=== PATIENT | female | born 1985 | race Caucasian/White ===

== ENCOUNTER → 2016-08-06 | Outpatient (CLI) | payer BC ==
[~2016-08-06] MED LIST: CHOL2000 PO; IBUP-1451 PO; LEVO75TA PO; OMEG10007 PO; PRENTAB26 PO
[2016-08-06 13:13] LABS: HEMATOCRIT 32.3 % (37-47)
[2016-08-06 13:54] LABS: GTGD 50 Grams
[2016-08-06 14:00] LABS: URINE APPEARANCE CLEAR (CLEAR); URINE BILIRUBIN NEG (NEG); URINE COLOR YELLOW; URINE NITRITE NEG (NEG); URINE SPECIFIC GRAVITY 1.002 (1.000-1.030); UROBILINOGEN NEG (NEG)
[2016-08-06 14:05] LABS: MANUAL MICROSCOPIC REQUIRED? NO; REVIEW REQ? NO
== END | disposition home or self-care (01) ==
LOC: C.LAB1850 12:07
PROVIDERS: ATTEND Obstetrics & Gynecology
DX: O99.283 Endocrine, nutritional and metabolic diseases complicating pregnancy, third trimester (principal)

== ENCOUNTER → 2016-10-01 | Outpatient (CLI) | payer BC | END | disposition home or self-care (01) | LOC: C.LABSPEC 13:24 | PROVIDERS: ATTEND Obstetrics & Gynecology | DX: Z34.83 Encounter for supervision of other normal pregnancy, third trimester (principal) ==

== ENCOUNTER 2016-10-08 17:12 | Outpatient (CLI) | payer BC ==
[~2016-10-08] VITALS: Ht 167.6 cm; Wt 72.7 kg
[~2016-10-08 17:12] MED LIST changes: -CHOL2000 PO; -IBUP-1451 PO
[2016-10-08 17:30] VITALS: Ht 167.6 cm; Wt 72.7 kg
[2016-10-08] MEDS ORDERED: CHOL2000 PO (19:22)
== END 2016-10-08 18:33 | disposition home or self-care (01) ==
LOC: C.OPB 17:12 → C.LD 17:12 → C.OPB 18:33
PROVIDERS: ATTEND Obstetrics & Gynecology
DX: O99.89 Other specified diseases and conditions complicating pregnancy, childbirth and the puerperium (principal); R03.0 Elevated blood-pressure reading, without diagnosis of hypertension; Z3A.38 38 weeks gestation of pregnancy

== ENCOUNTER 2016-10-21 03:43 | Inpatient (IN) | payer BC ==
[~2016-10-21] VITALS: Ht 167.6 cm; Wt 73.0 kg
[~2016-10-21 03:43] MED LIST changes: +CHOL2000 PO; -LEVO75TA PO
--- NOTE | 2016-10-23 09:27 | Medical Student: [facility] ---
Medical Student Delivery Note PRE-DELIVERY DIAGNOSIS: -30 year old , 40 weeks 2 days GA POST-DELIVERY DIAGNOSIS: same PROCEDURE: Spontaneous vaginal delivery and repair of 1st degree perineal laceration ESTIMATED BLOOD LOSS: 300 mL FINDING: viable male, Apgars 9/9, weight pending DESCRIPTION OF DELIVERY: Patient was administered epidural and pitocin and progressed to complete labor. She began to push and spontaneously vaginally delivered a viable male . The was delivered in the left occiput anterior position. After the head was delivered no nuchal cord was noted. The cord was clamped and cut. Next, the anterior shoulder was delivered followed by the posterior shoulder. Then the body was delivered. The baby was dried and subsequently placed on mother's abdomen. A spontaneous cry was heard. The placenta was then delivered spontaneously. It was intact and 2 umbilical arteries and 1 umbilical vein was observed. Oxytocin was given to the patient. Upon palpation the uterus was firm. A manual curettage was performed to check for retained clots or debris in the vagina and uterus. Next, the perineum, vagina and cervix were inspected for any tears. A 1st degree perineal laceration was observed. This laceration was repaired with 3-0 Vicryl. Mother and baby tolerated the procedure well and hemostasis was achieved. Lastly, sponges, instruments and needles were counted and correct at the end of the delivery.
[2016-10-23] MEDS ORDERED: DIPHTHERIA/TETANUS/PERTUSSIS 0.5 ML SYR/VIAL IM. ONE ×2 (09:30)
[2016-10-23] MEDS ORDERED: HYDROCORTISONE ACETATE 25 MG SUPP PR PRN ×2 (09:30)
[2016-10-23] MEDS ORDERED: BENZOCAINE 20% AER SPR 82.5 GM CAN EXT PRN ×2 (09:30)
[2016-10-23] MEDS ORDERED: ACETAMINOPHEN/CODEINE 300/30MG TAB PO PRN ×2 (09:30)
[2016-10-23] MEDS ORDERED: SUPERCREAM 0.870 % 15GM JAR EXT PRN ×2 (09:30)
[2016-10-23] MEDS ORDERED: OXYTOCIN INJ 10 UNITS/ML VIAL IM ONE ×2 (09:30)
[2016-10-23] MEDS ORDERED: LANOLIN OINT EXT PRN ×4 (09:30)
[2016-10-23] MEDS ORDERED: ACETAMINOPHEN 325 MG TAB PO PRN ×2 (09:30)
[2016-10-23] MEDS ORDERED: IBUPROFEN 600 MG TAB PO PRN (09:30)
--- NOTE | 2016-10-23 09:51 | DELIVERY SUMMARY ---
DATE OF OPERATION: 10/23/2016 DATE OF DELIVERY: 10/23/2016. COURSE OF CARE: Chica is a 30-year-old G2, P1-0-0-1 who presented to labor and delivery and was initially evaluated by my partner Dr. Tafoya and found to be with advanced dilation and painful contracts. Attempt was made to provide an epidural however prior to this occurring the patient began to complain of an urge to push. At that time I arrived in the room, Dr. Tafoya who was post call was then dismissed to go home and I assumed care of the patient. I quickly gowned and gloved and over the next pushing effort delivered the head of the followed by both shoulders with no difficulty and the remainder of the infant followed as well. The infant was placed on the maternal abdomen, the cord was allowed to cease pulsing and was then doubly clamped and cut by the father of the baby. Cord blood was collected and then per the patient's wishes the placenta was left in situ until it naturally delivered. Meanwhile the vagina and perineum were examined and a first degree perineal laceration was found. This was infiltrated with 1% plain lidocaine with the patient's permission and then closed using a 3-0 Vicryl in a running locked manner. The placenta then spontaneously delivered and was noted to be intact with a 3-vessel cord. The patient and her partner asked to bring this home and do not wish for it to be sent for evaluation. At the present time mother and infant are both in stable condition having tolerated delivery well. Subsequent review of records reveals that this 30-year-old female had a complicated by maternal hypothyroidism which was followed with monthly labs and did not require medical treatment. Her blood type is 0 positive. She is rubella immune and group B strep negative. ALLERGIES: She has no known allergies. MEDICATIONS: Her medications include hemorrhoid cream, vitamins. PAST MEDICAL HISTORY: Her medical history is notable for hypothyroid and depression as well as PCOS, none of which currently require medical treatment. PAST SURGICAL HISTORY: Notable for wisdom tooth extraction. OBSTETRIC HISTORY: Includes a prior vaginal delivery in 2012. ASSESSMENT: Currently the patient is immediately status post a spontaneous vaginal delivery and repair of first degree laceration and will be admitted for the usual care. I attest to the content of the Intraoperative Record and any orders documented therein. Any exceptio ns are noted below.
[2016-10-23 09:55] VITALS: Ht 167.6 cm; Wt 73.0 kg
[2016-10-23] MEDS: IBUPROFEN 600 MG TAB PO PRN ×2 (10:07→19:41)
[2016-10-23 13:50] VITALS: BP 126/82; PULSE 89; TEMP 36.8
[2016-10-23 16:00] VITALS: BP 131/88; PULSE 58; TEMP 36.9
[2016-10-23 19:30] VITALS: BP 107/68; PULSE 81; TEMP 36.5
[2016-10-23] MEDS: DOCUSATE SODIUM 100 MG CAP PO SCH (19:41)
[2016-10-23] MEDS ORDERED: DOCUSATE SODIUM 100 MG CAP PO SCH (20:00)
[2016-10-23 23:15] VITALS: BP 130/88; PULSE 62; TEMP 36.7
[2016-10-24 05:20] VITALS: BP 130/88; PULSE 62; TEMP 36.5
--- NOTE | 2016-10-24 06:34 | Progress Note ---
Subjective Oct 24, 2016. Subjective conversation w/ patient, physical exam, chart review Ambulation: ambulating normally Voiding: no voiding problems Passing Gas: Yes Diet Tolerance: Regular Diet Lochia: Moderate Feeding Type: Breast Feeding Review of Systems Constitutional: No chills, No fever Respiratory: No cough Cardiac: No chest pain Breast: No problem reported Abdomen: No nausea, No vomiting Female : No problem reported Objective Vital Signs Date Time Temp Pulse Resp B/P Pulse Ox O2 Delivery O2 Flow Rate FiO2 10/24/16 05:20 36.5 62 16 130/88 Room Air 10/23/16 23:15 36.7 62 18 130/88 Room Air 10/23/16 23:15 Room Air 10/23/16 19:30 36.5 81 20 107/68 Room Air 10/23/16 16:00 Room Air 10/23/16 16:00 36.9 58 16 131/88 Room Air 10/23/16 13:50 Room Air 10/23/16 13:50 36.8 89 20 126/82 Room Air Physical Exam General Appearance: WELL-APPEARING, NO APPARENT DISTRESS Respiratory/Chest: no respiratory distress, no accessory muscle use Cardiovascular: no edema Abdomen: non tender, soft Fundus: Firm Extremities: no pedal edema, no calf tenderness Laboratory Results Last 24 Hours Test 10/24/16 04:44 Assessment and Plan Post- Day#: 1 Continue Routine Care: PPD#1 unmedicated with 1' lac. Recovering normally, wishes to stay until PPD2.
[2016-10-24 07:02] LABS: HEMATOCRIT 29.2 % (37-47)
[2016-10-24] MEDS ORDERED: PRENATAL VITAMIN TAB PO SCH (08:00)
[2016-10-24] MEDS: PRENATAL VITAMIN TAB PO SCH (08:24)
[2016-10-24] MEDS: DOCUSATE SODIUM 100 MG CAP PO SCH ×2 (08:25→19:58)
[2016-10-24 08:30] VITALS: BP 127/92; PULSE 89; TEMP 36.7; O2SAT 99
[2016-10-24] MEDS: IBUPROFEN 600 MG TAB PO PRN ×2 (11:38→19:59)
[2016-10-24 15:30] VITALS: BP 130/78; PULSE 66; TEMP 36.8
[2016-10-25 00:45] VITALS: BP 124/83; PULSE 66; TEMP 36.7; O2SAT 97; O2SAT 98
--- NOTE | 2016-10-25 08:03 | Progress Note ---
Subjective Oct 25, 2016. Subjective conversation w/ patient, physical exam Ambulation: ambulating normally Voiding: no voiding problems Passing Gas: Yes Diet Tolerance: Regular Diet Lochia: Moderate Feeding Type: Breast Feeding Pain: controlled Review of Systems Constitutional: No problem reported Respiratory: No problem reported Cardiac: No problem reported Breast: No problem reported Abdomen: No problem reported Female : No problem reported Objective Vital Signs Date Time Temp Pulse Resp B/P Pulse Ox O2 Delivery O2 Flow Rate FiO2 10/25/16 00:45 97 Room Air 10/25/16 00:45 36.7 66 20 124/83 98 Room Air 10/24/16 15:30 Room Air 10/24/16 15:30 36.8 66 20 130/78 Room Air 10/24/16 08:30 36.7 89 16 127/92 99 Room Air 10/24/16 08:30 99 Room Air Physical Exam General Appearance: WELL-APPEARING, NO APPARENT DISTRESS Respiratory/Chest: no respiratory distress Cardiovascular: regular rate, rhythm Abdomen: non tender, soft Fundus: Firm Extremities: normal inspection Assessment and Plan Post- Day#: 2 Continue Routine Care: PPD#2 Doing well. Discharge to home today, teaching done.
--- NOTE | 2016-10-25 08:05 | Discharge Instructions ---
Discharge Instructions Date of Service Oct 25, 2016. Admission Reason for Admission: LABOR Discharge Discharge Diagnosis / Problem: Discharge Goals Goal(s): Routine recovery after delivery Activity Recommendations Activity Limitations: per Instructions/Follow-up section . Instructions / Follow-Up Instructions / Follow-Up ACTIVITY RECOMMENDATIONS: * Gradual return to full activity over the next 2-3 weeks. * No lifting - nothing heavier than baby over the next 2-3 weeks. * Do not engage in vigorous exercise, sexual activity or sports until cleared by your physician. * Do not drive or operate any motorized equipment until cleared by your physician. * You may shower/bathe daily. MEDICATIONS: For discomfort or pain, you may use Acetaminophen (Tylenol), Ibuprofen (Advil), or Naproxen (Aleve) following the package directions. For constipation you may use Colace following the package directions. BREAST CARE: If you are not breast feeding: * Wear a supportive bra 24 hours a day for one to two weeks. * Avoid stimulating your breasts and nipples as much as possible during the first few weeks after delivery. * When taking a shower, have the warm water hit your back, not breasts. * When your breasts feel full, apply ice packs. Usually three to four times a day helps ease the discomfort. * Take a mild pain medication (Tylenol / Motrin) when you are uncomfortable. If breast feeding: * Use breast milk to lubricate nipples. Lansinoh cream may be used for sore nipples. You do not need to remove cream prior to breast feeding. If using a different brand of cream, check the label for directions regarding removal of cream prior to nursing. * Wear a supportive bra. * If having problems with breasts or breast feeding, call a economics consultant or your health care provider. EPISIOTOMY CARE: After delivery, if you have an episiotomy (stitches), the following steps will ease discomfort and aid healing. * For the first 24 hours after delivery, place ice packs next to your episiotomy to help reduce swelling. * After the first 24 hour-period, sitz baths, either portable or in the tub, are suggested. A shower with a shower arm sprayed over the episiotomy may be comforting. * Eli care should be done after each voiding and bowel movement. Squirt warm water from a plastic bottle over the perineum (region of the body between the anus and urinary opening) and pat dry. * Use Dermoplast to ease discomfort. Shake container. [place] directly over the episiotomy. Place a Tucks on a clean sanitary pad next to your episiotomy. SPECIAL CARE INSTRUCTIONS: When you are discharged from the hospital, it is important for you to follow the instructions listed below: * During the first week at home, you should be able to care for yourself and your baby. In addition, the usual light household activities are encouraged. * Limit your activities to the way you feel. Do not try to clean the house or move furniture. Be sensible. * If you actively engage in sports and have done so up until the time of your delivery, you may resume these activities as soon as you feel able. This may take up to one month or even longer. Use good judgment. * Continue to take your vitamins for at least six weeks after the of your baby. * Your diet need not be limited unless you were on a special diet before your delivery. Breast-feeding mothers need around 2500 calories per day and at least 64-80 ounces of fluid per day (8 to 10 glasses). * You should eat foods from the four major food groups. Crash diets or fad diets are to be avoided. Eating lean meats, fresh fruits and vegetables, low-fat dairy products, high fiber foods and a regular exercise program, will help you get back to your pre- weight without putting your health at risk. * Constipation is sometimes a problem after delivery. Take a mild laxative as needed. If breast feeding, Milk of Magnesia is acceptable to use. You may use a suppository or Fleets enema if no episiotomy. * A daily shower or tub bath is suggested. Be sure to thoroughly and gently dry the perineum. * A bloody vaginal discharge will usually continue until around four weeks post . A small amount of bleeding may continue for as long as six weeks. Vaginal discharge changes from the bright red bleeding after delivery to pink then brownish and finally yellowish-pink before becoming white and disappearing. * Bleeding may increase with activity. Your first period may come in 4-8 weeks. If you are breast feeding, your period may be delayed even longer. * [place] (sex) can begin whenever both you and your partner feel comfortable and do not have any form of genital infection. It is recommended that you wait at least six weeks for internal and external healing to occur. If you have questions, please talk to your health care practitioner. A condom should be used to prevent infection and . * Foreplay, gentle intercourse and lubrication is very important the first several times to prevent pain. A water-based lubricant such as K-Y jelly or Astroglide may be used. * If you have RH negative blood and your baby is RH positive, you will receive RHOGAM by injection prior to discharge. The nurse will give you a card to keep with you that has the date and place that you received RHOGAM after delivery. * During your care, you had a Rubella screen done to check for the presence of rubella antibodies in your blood. If your test was negative, you will receive a Rubella vaccine prior to discharge. This vaccine may cause a fever, soreness at the injection site and flu-like symptoms. If these symptoms persist, notify your health care practitioner. is not advised for one month after a Rubella vaccine. * Verbalizes understanding of car seat law as reviewed with patient nursing. * Car Seat hand-out given and reviewed with patient by nursing. * Shaken baby information reviewed with patient by nursing. Call you doctor if: * Heavy bleeding (saturating several pads an hour) or passing clots the size of your fist. * A fever >101 degrees F (38.3 degrees C) on two occasions four hours apart and /or chills. * Unusual pain in the pelvic or vaginal areas. * "Baby Blues" lasting longer than two weeks. If you have any questions or concerns, call your health care practitioner at . FOLLOW UP VISIT: * Please call the office at to schedule a 6 week examination. It is important you keep this appointment. It is important for you to make arrangements for either yearly or twice yearly check-ups thereafter. Current Hospital Diet Patient's current hospital diet: Regular OB Diet Discharge Diet Recommended Diet: Regular OB Diet Pending Studies Studies pending at discharge: no Medical Emergencies . Who to Call and When: Medical Emergencies: If at any time you feel your situation is an emergency, please call 911 immediately. . Non-Emergent Contact Non-Emergency issues call your: Primary Care Provider, Parer . . "Provider Documentation" section prepared by Nusrat Bautista. VTE Core Measure Inpt VTE Proph given/why not?: Treatment not indicated
[2016-10-25 08:10] VITALS: BP 132/93; PULSE 85; TEMP 36.6; O2SAT 99
[2016-10-25] MEDS: IBUPROFEN 600 MG TAB PO PRN (08:27)
[2016-10-25] MEDS: PRENATAL VITAMIN TAB PO SCH (08:27)
[2016-10-25] MEDS: DOCUSATE SODIUM 100 MG CAP PO SCH (08:27)
[2016-10-25 13:21] VITALS: BP_DIAS 93; PULSE 85; TEMP 36.6
== END 2016-10-25 13:30 | disposition home or self-care (01) | DRG 775 ==
LOC: C.LD 10-23 08:56 → C.OBG 10-23 14:26
PROVIDERS: ADMIT Obstetrics & Gynecology; ATTEND Obstetrics & Gynecology
PROC: 0HQ9XZZ Repair Perineum Skin, External Approach (ICD-10-PCS; principal; 2016-10-23)
PROC: 10E0XZZ Delivery of Products of Conception, External Approach (ICD-10-PCS; principal; 2016-10-23)
DX: O48.0 Post-term pregnancy (principal); O70.0 First degree perineal laceration during delivery; Z37.0 Single live birth; Z3A.40 40 weeks gestation of pregnancy

== ENCOUNTER 2016-10-31 11:55 | Emergency (ER) | payer BC ==
[~2016-10-31] VITALS: Ht 167.6 cm; Wt 67.1 kg
[2016-10-31 11:57] VITALS: BP 152/95; PULSE 108; TEMP 36.7; O2SAT 99; Ht 167.6 cm; Wt 67.1 kg
--- NOTE | 2016-10-31 12:53 | EMERGENCY ROOM VISIT NOTE ---
ED Visit Note First contact with patient: 12:12 This Patient was discussed with the physician Brick Mason, Carlyn Carrera PA-C. The pertinent historical and physical exam findings were confirmed. I agree with the studies ordered and with the interpretations of these studies. I agree with the disposition and care plan.
--- NOTE | 2016-10-31 13:45 | EMERGENCY ROOM VISIT NOTE ---
History First contact with patient: 12:12 Chief Complaint: RECTAL PAIN Stated Complaint: THROMBOSED HEMORRHOIDS Nursing Triage Summary: hemorrhoids History of Present Illness The patient is a 30 year old female who presents to the Emergency Room with complaints of hemorrhoids. The patient states that she had a vaginal delivery 1 week ago. Since then, she has had progressively worsening rectal pain. She does report a history of hemorrhoids prior to her but states they have worsened significantly since giving . She was seen by her primary care provider 2 days ago and states that she had the hemorrhoids lanced. She states that the symptoms worsened the next day and she was then seen by Dr. Jane of general surgery, who also lanced the hemorrhoids. She states that since she has been home, they have again worsened. She is using sitz baths and topical lidocaine. The patient is taking Colace and states that she was able to have a bowel movement, but only while sitting in the sitz bath. Otherwise, she is not able to sit. She rates her discomfort a 10/10. She is taking Tylenol #2 with some relief of the pain. She called a general surgeon on-call today and was told to come here for further evaluation. Review of Systems A complete 10-point Review of Systems was discussed with the patient, with pertinent positives and negatives listed in the History of Present Illness. All remaining Review of Systems questions can be considered negative unless otherwise specified. Past Medical/Surgical History Medical Problems: (1) Elevated blood pressure affecting in third trimester, antepartum (2) Intrauterine (3) Labor established Social History Smoking Status: Never Smoker Current/Historical Medications Scheduled Cholecalciferol (Vitamin D3), 1 CAP PO DAILY Multivit/Min/Iron/Fol Ac/Pren ( Vitamin), 1 TAB PO DAILY Scheduled PRN Ibuprofen Tab (Motrin), 800 MG PO Q6H PRN for Pain Miscellaneous Medications Fish Oil ([place]-3), 1 CAP PO Allergies Coded Allergies: No Known Allergies (Unverified , 10/31/16) Physical Exam Vital Signs Date Time Temp Pulse Resp B/P Pulse Ox O2 Delivery O2 Flow Rate FiO2 10/31/16 11:57 36.7 108 20 152/95 99 Room Air Physical Exam VITALS: Vitals are noted on the nurse's note and reviewed by myself. Vital signs stable. GENERAL: This is a 30-year-old female, in no acute distress, nondiaphoretic, well-developed well-nourished. HEART: Regular rate and rhythm without murmurs gallops or rubs. LUNGS: Clear to auscultation bilaterally without wheezes, rales or rhonchi. No retractions or accessory muscle use. ABDOMEN: Positive bowel sounds x 4. Soft, nontender to palpation. RECTAL: There are 3 moderately sized thrombosed external hemorrhoids which are significantly tender to palpation. NEURO: Patient was alert and oriented to person place and time. Medical Decision & Procedures Medications Administered Medications (Trade) Dose Ordered Sig/Talat Route Start Time Stop Time Status Last Admin Dose Admin Ibuprofen (Advil Tab) 800 mg STK-MED ONCE .ROUTE 10/31/16 14:41 10/31/16 14:42 DC 10/31/16 14:38 800 MG Medical Decision The patient was evaluated as above. She has significant swelling and worsening symptoms despite I&D by general surgery yesterday. For this reason, Dr. Brower, the general surgeon environmental engineering manager was consulted. He felt that it was best to wait for the swelling to decrease before proceeding with any surgical procedures. He did offer the patient admission for pain control and bedrest versus discharge home and follow-up in the office on Wednesday. The patient preferred to be discharged home as she does have a new baby at home. She was given an additional prescription for Tylenol No. 2, which she has been taking for pain. She was instructed to continue conservative measures. She was given a prescription for ibuprofen 800 mg to take on a regular basis. The patient understands that she is to return if she has any worsening of her current condition or new/concerning symptoms. She verbalized understanding of my assessment and treatment plan and was discharged home in good condition. Impression Primary Impression: External thrombosed hemorrhoids Departure Information Dispostion Home / Self-Care Condition GOOD Prescriptions Ibuprofen Tab (MOTRIN) 800 Mg Tab 800 MG PO Q6H Y for Pain for 5 Days, #20 TAB For Initial Treatment Prov: Carlyn Carrera .TAMMIE 10/31/16 Referrals Marti Hairston D.O. (PCP) Patient Instructions My [facility] Additional Instructions Follow-up with Dr. Jane on Wednesday. Tylenol No. 2 as prescribed for pain. You may take 1-2 tablets every 4-6 hours as needed. Ibuprofen 800 mg every 6 hours. For any worsening pain or any other new/concerning symptoms, return to the emergency department. Dr. Brower is environmental engineering manager this weekend and will be able to see you if needed.
[2016-10-31] MEDS ORDERED: IBUP-1451 PO (14:33)
[2016-10-31] MEDS ORDERED: IBUPROFEN 200 MG TAB ONE (14:41)
--- NOTE | 2016-10-31 15:22 | SURGICAL CONSULTATION ---
DATE OF CONSULTATION: 10/31/2016 DATE OF CONSULTATION: 10/31/2016. Seen in the Emergency Room on 10/31/2016 at approximately 1:30 in the afternoon. SUMMARY: We were asked to see Chica who has thrombosed hemorrhoids according to the provider in the ER. This is a 30-year-old female who is approximately 1 week and has had a history of hemorrhoids and developed thorombosis that was treated by her primary care then on Wednesday was treated by Dr. Jane in his office where he incised and drained 1 quadrant. According to the and mother who was present the patient since then developed more pain overnight to the point that she was quite uncomfortable and came in here where we were asked to see her. She has been taken basically ibuprofen and Tylenol for pain. She is and today in the ER her baby is with her. She is somewhat emotional due to all the stressors of this past week. OBJECTIVE: On examination, the perianal area is free of any necrotic tissue on the prolapsed tissue. There seems to be a large approximately 2 cm a prolapsed hemorrhoid on the left side. The residual of the I\T\D that was done yesterday was on the right side. There is no evidence at this time of any tissue, necrosis or significant ulceration on the hemorrhoid itself. But having said this, my recommendation for the patient was basically either to come in and put at bedrest to try to decompress these with Witch [place]iqui or some warm compresses and see how she does by tomorrow and then if not resolved get some of the edema down and proceed with hemorrhoidectomy if not better. She is somewhat leery about coming into the hospital and leaving the new baby at home. I left the decision for them to make and they felt that possibly they wanted to go home, keep her on bedrest, keep Witch Chiqui compresses and see how she does by tomorrow. She can also take Sitz bath that she has been going and keep some warm compresses. She is on a stool softener. She really does not want anything more than ibuprofen and Tylenol for pain. I have asked that she call us in the morning, do not eat anything after midnight and if the situation worsens at any time we will be glad to see her and make appropriate further recommendations. If she does well this weekend I encouraged her to follow up with Dr. Jane on Wednesday who had seen her. At this point I am leery to proceed with hemorrhoidectomy taking out more tissue than I think we would need and just I\T\D I think will not alleviate the pain and the excess tissue at this time. MTDD
== END 2016-10-31 14:43 | disposition home or self-care (01) ==
LOC: C.EDB 11:56 → C.EDC 14:43
DX: O87.2 Hemorrhoids in the puerperium (principal)

== ENCOUNTER 2020-06-26 05:10 | Inpatient (IN) ==
--- NOTE | 2020-06-26 06:18 | Obstetrical Progress Note ---
Date of Service June 26, 2020 Assessment & Plan (1) Placenta previa with hemorrhage, antepartum: - heart tracing category 1 with irregular uterine irritability -Discussed with the patient that bleeding is from the placenta previa -Patient appears to be clinically stable at this point -We will check a CBC and a type and screen -Hep-Lock placed -Discussed with patient option is to observe here or to transport to tertiary care center -Risks and benefits of both of these discussed -All questions answered of the patient -At this point we will observe the patient here Subjective The patient is a 34-year-old 3 para 2, with an EDC of 01 August at 34+ weeks gestational age, with known placenta previa, who presents with vaginal bleeding. The patient previa was diagnosed at her anatomy ultrasound. She had her first episode of vaginal bleeding at 24 weeks and was life flighted to [place]. She has been managed expectantly and is scheduled for a primary section on 08 July. The patient awoke from sleep and felt some pressure. She had a bowel movement and passed a large clot which soaked her pants. Bleeding then stopped. She reports good movement. The patient presents to labor and delivery for evaluation. Physical Exam Constitutional: WD/WN, vitals as above Gastrointestinal (Abdomen): Gravid, positive heart tones, no palpable contractions, estimated weight of 5 pounds Musculoskeletal: No deep calf tenderness Genitourinary: Sterile speculum examination: Cervix is gently visualized. No active bleeding from the cervical os, small amount of blood in the posterior fornix, gentle digital examination of external cervix did not show gross dilation Results & Data ([facility]) Vital Signs (Past 12 Hours) Vital Signs Temp Pulse Resp BP 06/26/20 05:28 98.1 F 75 18 119/82 06/26/20 05:24 98.1 F 75 18 119/82 PG Care Time/CCT Total # of Minutes Spent Total Time Spent with Patient: Total time spent is greater than 50% in coordination of care (as documented) at patient's floor/unit and/or counseling patient: Coding Level of Care Code 82117 Office/Outpt Visit, Est Diagnoses Placenta previa with hemorrhage, antepartum O44.10 CPT Codes Misx Procedure Codes - 59907 NST: 80966 NST ([id number]) HAND COLLATOR Miscellaneous Codes Misx Procedure Codes 70797 NST
[2020-06-26 06:22] LABS: Hematocrit (blood only) 31.8 % (37-47); Hemoglobin 10.7 g/dL (12.0-16.0); Mean Corpuscular Hemoglobin 29.9 pg (25-34); Mean Corpuscular Hgb Conc 33.6 g/dL (32-36); Mean Corpuscular Volume 88.8 fL (80-100); Platelet Count 118 K/uL (130-400); RDW Coefficient of Variation 13.3 % (11.5-14.5); RDW Standard Deviation 42.7 fL (36.4-46.3); Red Blood Count 3.58 M/uL (4.2-5.4); White Blood Count 7.63 K/uL (4.8-10.8)
[2020-06-26] MEDS ORDERED: BETAMETH SOD PHOS/ACETATE IA 6 MG/ML IM STA (09:19)
--- NOTE | 2020-06-26 10:01 | History & Physical Report ---
Date of Service June 26, 2020 Assessment & Plan (1) Placenta previa with hemorrhage, antepartum: -as she had some small clot when she went to the bathroom, will monitor for a little longer however unsure of how long as it will depend on her symptoms -CBC stable on admission -bmz course already initiated History of Present Illness Chief Complaint: VB, placenta previa Primary Care Provider: Marti Hairston DO 34-year-old -0-0-2 at 34-6/7 weeks gestational age with a SARITA 08/01/2020 by LMP of 10/26/2019 who presents with complaints of vaginal bleeding. She has a known placenta previa and had an episode of vaginal bleeding at 24 weeks and was life flighted to [place] where she remained stable. She was subsequently discharged and had no further bleeding until this morning when she awoke from sleep and felt pressure like she had to go have a bowel movement. When she woke up, she noted that her clothing had blood on it. She was able to have a normal bowel movement otherwise ago. Following this, bleeding did stop. Given her concern, she did present for evaluation Exam on arrival this morning by Dr. Brand demonstrated no active bleeding from the cervical os and only a small amount of blood in the posterior fornix. CBC was stable. She was monitored for approximately 4 hours and had no bleeding even after she went to the bathroom. Decision was made to initiate betamethasone course today was stable for discharge, however when she went to the bathroom before leaving she noted a small brighter clot in the toilet and a scant amount of pink-red on the toilet paper when she wiped. Still good movement; denies contractions, leaking of fluid otherwise. Given this change, will monitor for additional extended period of time PNI: Placenta previa, scheduled for pCS 07/08 Allergies Allergy/AdvReac Type Severity Reaction Status Date / Time lactose Allergy Unknown Gastrointestinal Verified 06/26/20 05:26 Upset Home Medications Medication Instructions Recorded Confirmed Type prenat.vits,pipe,xdd-qjke-qhwgu 2 tab PO BID 12/15/19 06/26/20 History cholecalciferol (vitamin D3) 125 mcg PO QAM 06/21/20 06/26/20 History [Vitamin D3] ferrous sulfate 325 mg PO BID 06/21/20 06/26/20 History omega 7-pzu-zvm-fish oil [Fish Oil] 1 cap PO QAM 06/21/20 06/26/20 History Patient History Medical History Dysmetabolic syndrome X Elevated blood pressure affecting in third trimester, antepartum Encounter for anatomic survey Encounter for supervision of normal in multigravida, antepartum External thrombosed hemorrhoids History of PCOS History of varicella Hypothyroidism during Marginal placenta previa Placenta previa with hemorrhage in second trimester Surgical History Nausea and vomiting after administration of anesthetic agent S/P wisdom tooth extraction Family History Grandmother (Maternal) Breast cancer Social History Smoking Status: Never smoker Second Hand Exposure: No; Hx Alcohol Use: No Hx Substance Use: No Preferred Language: Cook Islander Communication Ability: Effective Orthopedic Podiatrist Required: No Beliefs That Will Affect Care: None marital status: marital status details: Arvin (35) [phone] Current Living Situation: Spouse and Family Current Living Situation Comment: Pt lives with , daughter, and son current occupational status: 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[employer] Feels Safe at Home: Yes Safety Concerns: Feels Safe At This Time Assistive Devices: None Physical Exam Constitutional: WD/WN, vitals as above no acute distress Respiratory: normal respiratory effort; no respiratory distress and no labored breathing Gastrointestinal (Abdomen): Inspection/Auscultation: abdomen normal to inspection Percussion/Palpation: abdomen soft; abdomen nontender and no guarding Genitourinary: OB Exam Abdomen: + irregular contractions (rare) OB Exam Monitor Tracing: + external FHT monitor used, + external uterine monitor used and + category I (120/mod/+accel/-decel) Results & Data ([facility]) Vital Signs (Past 12 Hours) Vital Signs Temp Pulse Pulse Resp BP BP 06/26/20 09:51 74 119/70 06/26/20 07:27 97.9 F 81 16 121/72 06/26/20 07:22 81 121/72 06/26/20 05:28 98.1 F 75 18 119/82 06/26/20 05:24 98.1 F 75 18 119/82 Laboratory Results 06/26/20 06/26/20 Range/Units 06:07 06:07 WBC 7.63 (4.8-10.8) K/uL RBC 3.58 L (4.2-5.4) M/uL Hgb 10.7 L (12.0-16.0) g/dL Hct 31.8 L (37-47) % MCV 88.8 (80-100) fL MCH 29.9 (25-34) pg MCHC 33.6 (32-36) g/dL RDW Std Deviation 42.7 (36.4-46.3) fL RDW Coeff of Kamila 13.3 (11.5-14.5) % Plt Count 118 L (130-400) K/uL MPV 10.0 (7.4-10.4) fL Blood Type O Positive Antibody Screen NEGATIVE Coding Level of Care Code 18313 OBS Care - Level 2 Diagnoses Placenta previa with hemorrhage, antepartum O44.10
[2020-06-26] MEDS ORDERED: LACTATED RINGER'S 500 ML IV ONE (12:40)
--- NOTE | 2020-06-26 12:47 | Obstetrical Progress Note ---
Date of Service June 26, 2020 Assessment & Plan (1) Placenta previa with hemorrhage, antepartum: -BMZ given this morning at 930 -Concerned having additional bleeding that may need to move to delivery however true active bleeding is not noted. -Repeat CBC, abruption labs ordered. Will make sure T&S available as well. -Will order covid test in case delivery is needed -Discussed possible need for transfer given gestational age with peds, they feel [place] is ok for delivery here. Discussed extensively with pt and , will continue to monitor. Pt aware if beginning to active bleed, will need to proceed with delivery. Subjective Pt re-evaluated after noting some increased bleeding when going to the bathroom. Had again small brighter red clots but noted more with wiping. Still no contractions or other LOF Physical Exam Constitutional: WD/WN, vitals as above no acute distress Gastrointestinal (Abdomen): Percussion/Palpation: abdomen soft; abdomen nontender Genitourinary: Normal external genitalia SSE - 1cm dark clot mixed with mucous noted at cervical os. Once moved away, there is the slightest trickle but no other active bleeding. Os appears closed Results & Data ([facility]) Vital Signs (Past 12 Hours) Vital Signs Temp Pulse Pulse Resp BP BP 06/26/20 12:05 74 116/70 06/26/20 09:51 98.4 F 74 20 119/70 06/26/20 07:27 97.9 F 81 16 121/72 06/26/20 07:22 81 121/72 06/26/20 05:28 98.1 F 75 18 119/82 06/26/20 05:24 98.1 F 75 18 119/82 PG Care Time/CCT Total # of Minutes Spent Total Time Spent with Patient: Total time spent is greater than 50% in coordination of care (as documented) at patient's floor/unit and/or counseling patient: Coding Level of Care Code None Diagnoses Placenta previa with hemorrhage, antepartum O44.10
[2020-06-26 13:02] LABS: Hemoglobin 10.9 g/dL (12.0-16.0); Mean Corpuscular Hemoglobin 30.1 pg (25-34); Mean Corpuscular Volume 88.4 fL (80-100); Mean Platelet Volume 9.5 fL (7.4-10.4); Platelet Count 123 K/uL (130-400); RDW Coefficient of Variation 13.4 % (11.5-14.5); RDW Standard Deviation 43.9 fL (36.4-46.3); Red Blood Count 3.62 M/uL (4.2-5.4); White Blood Count 8.95 K/uL (4.8-10.8)
[2020-06-26 13:09] LABS: Mean Corpuscular Hgb Conc 34.1 g/dL (32-36)
[2020-06-26] MEDS: LACTATED RINGER'S 1,000 ML IV SCH ×2 (13:16→16:44)
[2020-06-26 14:14] LABS: Fibrinogen 414 mg/dl (184-400); INR 0.9 (0.9-1.1); Partial Thromboplastin Time 27.1 Seconds (21.0-31.0); Prothrombin Time 9.9 Seconds (9.0-12.0)
--- NOTE | 2020-06-26 14:35 | Anesthesiology Consultation ---
Date of Service June 26, 2020 Assessment & Plan (1) Encounter for pre-operative examination: Chart Review Chart Review: Acceptable Risk for Surgery and Patient NOT seen in Pre Admission Testing Covid prescreen done 06/26/2020 and was negative. Spent a significant amount of time with patient discussing anesthetic plan with her and her significant other. Spoke at length regarding general anesthesia, neuraxial anesthesia and risk for significant hemorrhage requiring possible massive transfusion protocol. Risks and benefits of each technique discussed and it would be patient's preference to be done under neuraxial anesthesia with her significant other present if possible. Stated I would consider doing a single shot SAB if it can be done under a controlled environment if life threatening hemorrhage isn't present (thus requiring urgent general anesthesia). Also spoke with patient about potentially needing to do an arterial line and/or central line. She is ok with receiving blood and blood products and had all questions answered. Operating room was prepared for this procedure if it is deemed necessary. Consults Requested none History Height/Weight Height: 5 ft 6 in Weight: 72.575 kg Allergies Allergy/AdvReac Type Severity Reaction Status Date / Time lactose Allergy Unknown Gastrointestinal Verified 06/26/20 05:26 Upset Medications Home Medications Medication Instructions Recorded Confirmed Last Taken prenat.vits,pipe,pps-mftm-pzvqd 2 tab PO BID 12/15/19 06/26/20 06/25/20 20:00 cholecalciferol (vitamin D3) 125 mcg PO QAM 06/21/20 06/26/20 06/25/20 08:00 [Vitamin D3] ferrous sulfate 325 mg PO BID 06/21/20 06/26/20 06/25/20 08:00 omega 9-vec-anf-fish oil [Fish Oil] 1 cap PO QAM 06/21/20 06/26/20 06/25/20 08:00 Active Medications Generic Name Dose Route Start Last Admin Trade Name Freq PRN Reason Stop Dose Admin Lactated Ringer's 1,000 mls @ 125 mls/hr 06/26/20 12:45 06/26/20 13:16 Lr IV 07/26/20 12:44 125 mls/hr .Q8H JIE Administration Past Medical History Medical History Dysmetabolic syndrome X Elevated blood pressure affecting in third trimester, antepartum Encounter for anatomic survey Encounter for supervision of normal in multigravida, antepartum External thrombosed hemorrhoids History of PCOS History of varicella Hypothyroidism during Marginal placenta previa Placenta previa with hemorrhage in second trimester Exercise / Class Metabolic Activity II 4-5 Yardwork/Stairs/Walk up hill Past Family History Family History Grandmother (Maternal) Breast cancer Past Surgical History Surgical History Nausea and vomiting after administration of anesthetic agent S/P wisdom tooth extraction Past Anesthesia History No Hx of Anesthesia Complications and No Family Hx of Anesthesia Complications History of PONV No Hx of Motion Sickness and History of PONV (With wisdom teeth) Social History Smoking Status: Never smoker Do You Dip or Chew Tobacco: No Hx Alcohol Use: No Alcohol type: wine alcohol intake frequency: a few times a month Hx Substance Use: No substance use type: does not use Physical Exam Vital Signs Last Vital Signs Temp 36.7 C 06/26/20 14:22 Pulse 81 06/26/20 14:22 Resp 20 06/26/20 14:22 BP 123/82 06/26/20 14:22 Testing Laboratory Results 06/26/20 12:50 PT 9.9 Seconds (9.0-12.0) 06/26/20 12:50 INR 0.9 (0.9-1.1) 06/26/20 12:50 APTT 27.1 Seconds (21.0-31.0) 06/26/20 12:50 Blood Type O Positive 06/26/20 06:07 Antibody Screen NEGATIVE 06/26/20 06:07
--- NOTE | 2020-06-26 14:41 | Obstetrical Progress Note ---
Date of Service June 26, 2020 Assessment & Plan (1) Placenta previa with hemorrhage, antepartum: -cat 1 tracing, VSS -BMZ given this morning at 930 -Repeat CBC, abruption labs wnl, was T&S this AM -COVID neg -Continue to monitor as bleeding appears to have stabilized. Discussed that if bleeding occurs again will likely indicate delivery. Anesthesia, peds, main OR have been made aware of possibility. If no further bleeding, will still recommend monitoring overnight until second BMZ shot regardless. Pt and verbalized understanding Admission and Anticipated Discharge Date Admission Date: June 26, 2020 Subjective Discussed plan of care. Only small spot with last bathroom visit, no further VB. No ctx, LOF Physical Exam Constitutional: WD/WN, vitals as above no acute distress Respiratory: normal respiratory effort; no respiratory distress and no labored breathing Genitourinary: OB Exam Abdomen: + irregular contractions (rare) OB Exam Monitor Tracing: + external FHT monitor used, + external uterine monitor used and + category I (125/mod/+accel/-decel) Results & Data ([facility]) Vital Signs (Past 12 Hours) Vital Signs Temp Pulse Pulse Resp BP BP 06/26/20 14:22 98.1 F 81 20 123/82 06/26/20 12:05 74 116/70 06/26/20 09:51 98.4 F 74 20 119/70 06/26/20 07:27 97.9 F 81 16 121/72 06/26/20 07:22 81 121/72 06/26/20 05:28 98.1 F 75 18 119/82 06/26/20 05:24 98.1 F 75 18 119/82 PG Care Time/CCT Total # of Minutes Spent Total Time Spent with Patient: Total time spent is greater than 50% in coordination of care (as documented) at patient's floor/unit and/or counseling patient: Coding Level of Care Code None Diagnoses Placenta previa with hemorrhage, antepartum O44.10
--- NOTE | 2020-06-26 20:45 | Obstetrical Progress Note ---
Date of Service June 26, 2020 Assessment & Plan (1) Placenta previa with hemorrhage, antepartum: -cat 1 tracing, VSS -BMZ given this morning at 930 -Repeat CBC, abruption labs wnl, was T&S this AM -COVID neg -Continue to monitor as bleeding appears to have stabilized. Discussed that if bleeding occurs again will likely indicate delivery. Anesthesia, peds, main OR have been made aware of possibility. If no further bleeding, will still recommend monitoring overnight until second BMZ shot regardless. Pt and verbalized understanding Admission and Anticipated Discharge Date Admission Date: June 26, 2020 Subjective Discussed plan of care. Only small spot with last bathroom visit, no further VB. No ctx, LOF Physical Exam Constitutional: WD/WN, vitals as above no acute distress Respiratory: normal respiratory effort; no respiratory distress and no labored breathing Gastrointestinal (Abdomen): Inspection/Auscultation: abdomen normal to inspection Percussion/Palpation: abdomen soft; abdomen nontender and no guarding Genitourinary: OB Exam Abdomen: + irregular contractions (rare) OB Exam Monitor Tracing: + external FHT monitor used, + external uterine monitor used and + category I (125/mod/+accel/-decel) Results & Data ([facility]) Vital Signs (Past 12 Hours) Vital Signs Temp Pulse Resp BP 06/26/20 19:15 97.9 F 18 06/26/20 19:12 86 122/74 06/26/20 14:22 98.1 F 81 20 123/82 06/26/20 12:05 74 116/70 06/26/20 09:51 98.4 F 74 20 119/70 PG Care Time/CCT Total # of Minutes Spent Total Time Spent with Patient: Total time spent is greater than 50% in coordination of care (as documented) at patient's floor/unit and/or counseling patient: Coding Diagnoses Placenta previa with hemorrhage, antepartum O44.10
[2020-06-26] MEDS ORDERED: diphenhydrAMINE Capsule 25 MG CAP PO ONE (20:52)
--- NOTE | 2020-06-26 21:12 | Communication Note ---
Date of Service: June 26, 2020 Met with patient and at bedside to discuss plan of care. Have spoken with Dr. Diaz, the oncoming on-call doctor for tomorrow regarding plan of care for the patient. Discussed that while it is reassuring that she has been stable during the afternoon, the recommendation would be for delivery on Wednesday morning, 48 hours after initial betamethasone dose, via for placenta previa and to remain in-house until then. Though she is scheduled for in a week and half, there would be concerned that she would bleed again, and potentially have a catastrophic bleed that could endanger the patient or the baby's life, since this is the second bleed this . Discussed that the risk of keeping the baby in utero following steroid administration would outweigh the risk of prematurity at 35 weeks. Had discussed previously with peds that they would be comfortable with managing a 35-week with our a lot of resources. However, should she have a bleed again before then, we would recommend delivery at that time regardless of steroid status. The patient and her verbalized understanding and are amenable to this plan at this time. I did also speak with blood bank who stated that they had multiple units of O+ blood type packed red cells and FFP. At this time they do have 2 units of platelets, and could request emergency platelet funds from nearby hospitals if needed. However they state that they cannot request platelets unless they will definitely be used. The patient is typed and screened currently, will place 2 units on hold of packed red blood cells.
[2020-06-26] MEDS ORDERED: SODIUM CHLORIDE 0.9% 250 ML IV PRN (21:13)
[2020-06-26] MEDS ORDERED: diphenhydrAMINE HCl 12.5 MG/5 ML UDC PO ONE (21:15)
[2020-06-27] MEDS: LACTATED RINGER'S 1,000 ML IV SCH (06:59)
--- NOTE | 2020-06-27 08:59 | Obstetrical Progress Note ---
Date of Service June 27, 2020 Assessment & Plan (1) Placenta previa with hemorrhage, antepartum: -Fetus cat 1 -no further bleeding overnight -Reviewed plan of care with pt and . Plan for delivery on wednesday when steroid complete. Blood bank made aware, T&C 2U and 1u platelets held. Peds aware and comfortable with [place], will meet with pt as well. OR to be contacted for booking. Ample time given for questions, answered to pt and 's satisfaction -Will allow pt to eat as she has been stable and come off L&D status. NSTs qshift, will make NPO after midnight. Admission and Anticipated Discharge Date Admission Date: June 26, 2020 Subjective Met w/ pt. Able to sleep well, +FM; deniese ctx, LOF, VB. Was up to bathroom overnight twice and had no bleeding Physical Exam Constitutional: WD/WN, vitals as above no acute distress Respiratory: normal respiratory effort; no respiratory distress and no labored breathing Gastrointestinal (Abdomen): Percussion/Palpation: abdomen soft; abdomen nontender Genitourinary: OB Exam Abdomen: + irregular contractions (>10 min apart) OB Exam Monitor Tracing: + external FHT monitor used, + external uterine monitor used and + category I (125/mod/+accel/-decel) Results & Data ([facility]) Vital Signs (Past 12 Hours) Vital Signs Temp Pulse Resp BP 06/27/20 07:20 98.1 F 88 20 107/73 06/27/20 03:24 73 99/56 L 06/26/20 23:57 83 116/65 06/26/20 23:55 97.9 F 18 PG Care Time/CCT Total # of Minutes Spent Total Time Spent with Patient: Total time spent is greater than 50% in coordination of care (as documented) at patient's floor/unit and/or counseling patient: Coding Level of Care Code None Diagnoses Placenta previa with hemorrhage, antepartum O44.10
[2020-06-27] MEDS ORDERED: BETAMETH SOD PHOS/ACETATE IA 6 MG/ML IM ONE (09:30)
--- NOTE | 2020-06-27 10:46 | Pediatric Consultation ---
Date of Consultation June 27, 2020 History of Present Illness Reason for Consultation: prematurity Attending Physician: Penelope Kwan MD History of Present Illness Chica is a pleasant 34 YO F currently at 35w with course complicated by placental previa presenting with vaginal bleeding. At this time, there is concern for progression to active labor and risk of hypovolemic hemorrhage to mother, therefore tentative plan for tomorrow morning. I was asked by Dr. Kwan, as well as Chica, to discuss prematurity, risks associated with at 35 weeks gestation and the care we could offer at [facility]. I spoke with Chica for ~ 30 mins and answered many of her questions. I discussed the risk of RDS/TTN/Hypoxemia in newborns born at 35 weeks, despite receiving betamethasone. I discussed that our Level 2 NICU could offer NIPPV and the associated benefit/risk associated with this. I discussed potential need for tertiary transfer for more invasive measures (including surfactant administration, intubation, ferry terminal agent central line acess). I discussed our use of [facility] EOS score/calculator for determining who receives antibioitics. I discussed the risk of hypoglycemia and need for IV fluids, thermoregulation issues requiring pastrycook's assistant heating, difficulties with feeding requiring supplementation, hyperbilirubinemia issues. Mother continues to advocate for delivery at [facility] despite these risk. Allergies Allergy/AdvReac Type Severity Reaction Status Date / Time lactose Allergy Unknown Gastrointestinal Verified 06/26/20 05:26 Upset Home Medications Medication Instructions Recorded Confirmed Type prenat.vits,pipe,qni-sifo-kyxfv 2 tab PO BID 12/15/19 06/26/20 History cholecalciferol (vitamin D3) 125 mcg PO QAM 06/21/20 06/26/20 History [Vitamin D3] ferrous sulfate 325 mg PO BID 06/21/20 06/26/20 History omega 4-tgj-trz-fish oil [Fish Oil] 1 cap PO QAM 06/21/20 06/26/20 History Patient History Medical History Dysmetabolic syndrome X Elevated blood pressure affecting in third trimester, antepartum Encounter for anatomic survey Encounter for supervision of normal in multigravida, antepartum External thrombosed hemorrhoids History of PCOS History of varicella Hypothyroidism during Marginal placenta previa Placenta previa with hemorrhage in second trimester Surgical History Nausea and vomiting after administration of anesthetic agent S/P wisdom tooth extraction Family History Grandmother (Maternal) Breast cancer Social History Smoking Status: Never smoker Second Hand Exposure: No; Do You Dip or Chew Tobacco: No; Hx Alcohol Use: No Hx Substance Use: No Preferred Language: Italian Communication Ability: Effective Sales Support Associate Required: No Beliefs That Will Affect Care: None marital status: marital status details: Arvin (35) [phone] Current Living Situation: Spouse and Family Current Living Situation Comment: Pt lives with , daughter, and son current occupational status: 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[employer] Other Information That Helps Us Care for You: No Feels Safe at Home: Yes Safety Concerns: Feels Safe At This Time Assistive Devices: None Results & Data (Ped) Vital Signs (Past 24 Hours) Temp Pulse Resp BP 06/27/20 07:20 36.7 C 88 20 107/73 06/27/20 03:24 73 99/56 L 06/26/20 23:57 83 116/65 06/26/20 23:55 36.6 C 18 06/26/20 19:15 36.6 C 18 06/26/20 19:12 86 122/74 06/26/20 14:22 36.7 C 81 20 123/82 06/26/20 12:05 74 116/70 Medications Administered Lactated Ringer's (Lr) 1,000 mls @ 125 mls/hr IV .Q8H JIE Stop: 07/26/20 12:44 Last Infusion: 06/27/20 09:00 Dose: 0 mls/hr Documented by: [id number] Admin: 06/27/20 06:59 Dose: 125 mls/hr Documented by: [id number] Infusion: 06/27/20 00:44 Dose: 125 mls/hr Documented by: [id number] Infusion: 06/26/20 19:33 Dose: 125 mls/hr Documented by: [id number] Infusion: 06/26/20 18:55 Dose: 125 mls/hr Documented by: [id number] Admin: 06/26/20 16:44 Dose: 125 mls/hr Documented by: [id number] Infusion: 06/26/20 16:44 Dose: 125 mls/hr Documented by: [id number] Admin: 06/26/20 13:16 Dose: 125 mls/hr Documented by: [id number] PG Care Time/CCT Total # of Minutes Spent Total Time Spent with Patient: Total time spent is greater than 50% in coordination of care (as documented) at patient's floor/unit and/or counseling patient: Coding Level of Care Code None
[2020-06-27] MEDS ORDERED: diphenhydrAMINE Capsule 25 MG CAP PO ONE (19:54)
[2020-06-27] MEDS ORDERED: diphenhydrAMINE HCl 12.5 MG/5 ML UDC PO ONE (20:30)
[2020-06-28] MEDS ORDERED: ceFAZolin 2000MG 2,000 MG/15 ML SYR IV SCH (06:00)
[2020-06-28] MEDS ORDERED: CITRIC ACID/SODIUM CITRATE 15 ML UDC PO SCH (06:00)
[2020-06-28 06:20] LABS: Eosinophils # (auto) 0.01 K/uL (0-0.5); Eosinophils % (auto) 0.1 %; Hematocrit (blood only) 29.7 % (37-47); Hemoglobin 10.2 g/dL (12.0-16.0); Immature Granulocytes # (auto) 0.06 K/uL (0.00-0.02); Immature Granulocytes % (auto) 0.5 %; Lymphocytes # (auto) 1.05 K/uL (1.2-3.4); Mean Corpuscular Hemoglobin 30.9 pg (25-34); Mean Corpuscular Hgb Conc 34.3 g/dL (32-36); Monocytes # (auto) 0.71 K/uL (0.11-0.59); Monocytes % (auto) 5.4 %; Neutrophils # (auto) 11.28 K/uL (1.4-6.5); Platelet Count 119 K/uL (130-400); RDW Coefficient of Variation 13.4 % (11.5-14.5); RDW Standard Deviation 43.8 fL (36.4-46.3); White Blood Count 13.11 K/uL (4.8-10.8)
[2020-06-28] MEDS: LACTATED RINGER'S 1,000 ML IV SCH (08:01)
--- NOTE | 2020-06-28 08:32 | History & Physical Bridge Note ---
Date of Service June 28, 2020 History & Physical Bridge Note I have examined the patient, reviewed the History & Physical and in the interval since the performance of the History & Physical I have noted the following changes of clinical significance: Patient and FOB met this morning. Chart reviewed from this admission thus far, and had also been previously discussed with Dr. Diaz. I am the oncoming physician this morning and will be responsible for the planned CS to occur now that she is s/p two doses of BMTZ. This is indicated due to previa with 2x large bleeding episodes this . Cake Maker is aware and on board with plan for delivery locally. Blood bank is aware and holding a supply of both pRBC, FFP and Plts for our use if needed. Anesthesia is aware and main OR is booked for the procedure. FOB and Patient both in agreement with plan and given opportunity to ask questions this morning.
[2020-06-28] MEDS ORDERED: ALBUMIN HUMAN 5% 12.5 GM/250 ML VIAL IV ONE (09:49)
[2020-06-28] MEDS ORDERED: METHYLERGONOVINE MALEATE 0.2 MG/ML AMP ONE (09:50)
[2020-06-28] MEDS ORDERED: CARBOPROST TROMETHAMINE 250 MCG/ML AMPUL ONE (09:50)
[2020-06-28] MEDS ORDERED: fentaNYL citrate 100 MCG/2 ML VIAL ONE (10:56)
[2020-06-28] MEDS ORDERED: MoRPHine SULFATE PF 1 MG/ML 10 ML AMP/VIAL ONE (10:56)
[2020-06-28] MEDS ORDERED: OXYTOCIN 10 UNITS/ML VIAL ONE ×4 (11:23→11:28)
[2020-06-28] MEDS ORDERED: SODIUM CHLORIDE 0.9% INJ 10 ML VIAL ONE (11:23)
[2020-06-28] MEDS ORDERED: ePHEDrine sulfate 50 MG/ML AMP ONE (11:32)
[2020-06-28] MEDS ORDERED: PHENYLEPHRINE HCL 10 MG/ML VIAL ONE (11:32)
[2020-06-28] MEDS ORDERED: ONDANSETRON INJ 2 MG/ML 2 ML VIAL ONE (11:32)
[2020-06-28] MEDS ORDERED: GLYCOPYRROLATE 0.2 MG/ML VIAL ONE (11:33)
--- NOTE | 2020-06-28 11:53 | Operative Report ---
PG Post Operative Report Pre & Post Diagnosis Operation Date: 06/28/20 09:30 Pre-Op Diagnosis: Placenta Previa with hemorrhage SVIUP@ 35w1d s/p BMTZ x2 doses Post-Op Diagnosis: Same I identified the patient and participated in the time-out.: Yes Procedure Operation Date: 06/28/20 09:30 Actual Procedures Primary Low Transverse Section Surgeon Betty Purdy MD Child Psychometrist Michele Estimated Blood Loss 600 Findings Consistent with Post-Op Diagnosis Specimens Cord gas, cord blood, placenta Anesthesia Type Spinal Complications none Disposition Accompanied Patient To Recovery: Yes Disposition: L&D Description of Procedure The patient was brought to the operating room and placed on the table in the supine position with a leftward tilt, then prepped and draped in standard sterile fashion. A hard time out was taken prior to proceeding. A pfannensteil incision was created sharply and carried down to the fascia using bovie electrocautery. The fascia was nicked and then extended using rogers scissors. The edges of the fascia were grasped with Stephon clamps and elevated, then sharply and bluntly dissected off the underlying rectus. The midline of the rectus was identified and bluntly . The peritoneum was bluntly entered, and this entry was extended using pressure from the surgeon's hands. The bladder retractor was placed and the lower uterine segment was examined and found to be well developed. A bladder flap was created and the retractor was replaced behind this flap to protect the bladder. A transverse lower uterine incision was then created, with final entry to the uterine cavity made in a blunt manner with the surgeon's finger. Clear amniotic fluid was encountered. The head was elevated to the incision and delivered using mild fundal pressure. The cord was doubly clamped and cut, then the vigorous infant was taken to the warmer for coil machine operator care. A segment of cord was isolated for cord gas collection. The placenta was delivered via fundal massage and began immediately to release; it was easily and completely extracted, then the uterus was gently exteriorized from the maternal abdomen. The cavity was cleared of clot and debris using a dry lap sponge. The angles of the incision were identified with allis clamps, and the hysterotomy was then repaired in running locked fashion using 0-vicryl suture, followed by a second imbricating layer. The tubes and ovaries were examined and found to be normal bilaterally. The posterior gutter was irrigated and cleared of clot and debris. The uterus was then gently re-internalized to the abdomen. Lateral gutters were cleared of clot and debris using a damp lap sponge, and a final exam of the hysterotomy revealed good hemostasis. The rectus muscles were allowed to reapproximate naturally. The angle of the fascia was grasped with a Stephon clamp and the fascia was then repaired in running non-locked fashion with 1-vicryl suture. At the completion of repair, the fascia was examined and found to be free of any defect. The subcutaneous tissue was copiously irrigated. The skin was then closed using 4-0 monocryl in a running subcuticular fashion and a dermabond dressing was applied. The mcintosh was noted to be draining clear yellow urine as the patient was transferred back to her recovery room. I attest to the content of the Intraoperative Record and any orders documented therein. Any exceptions are noted below.
[2020-06-28] MEDS ORDERED: LACTATED RINGER'S 500 ML IV PRN (12:15)
[2020-06-28] MEDS ORDERED: NALOXONE HCL 0.4 MG/1 ML VIAL/CARP IV PRN (12:15)
[2020-06-28] MEDS ORDERED: HYDROmorphone INJ 0.5 MG/0.5 ML SYR IV PRN (12:15)
[2020-06-28] MEDS ORDERED: ACETAMINOPHEN 1000 MG/100 ML IV IV PRN (12:15)
[2020-06-28] MEDS ORDERED: diphenhydrAMINE 50 MG/ML VIAL IV PRN (12:15)
[2020-06-28] MEDS ORDERED: ePHEDrine sulfate 50 MG/ML AMP IV PRN (12:15)
[2020-06-28] MEDS ORDERED: MoRPHine SULFATE PF 1 MG/ML 10 ML AMP/VIAL INT SPINAL ONE (12:15)
[2020-06-28] MEDS ORDERED: ONDANSETRON INJ 2 MG/ML 2 ML VIAL IV PRN (12:15)
[2020-06-28] MEDS ORDERED: NALOXONE HCL 0.08 MG in SYRINGE 1.8 ML IV PRN (12:15)
[2020-06-28] MEDS ORDERED: SODIUM CHLORIDE 0.9% 1000ML 1,000 ML IV SCH (12:15)
[2020-06-28] MEDS ORDERED: DC INTRASPINAL MORPHINE SCH (12:15)
[2020-06-28] MEDS ORDERED: NO NARCOTICS OR SEDATIVES SCH (12:15)
[2020-06-28] MEDS ORDERED: NALOXONE HCL 1 MG in SODIUM CHLORIDE 0.9% 1000ML 1,000 ML IV PRN (12:15)
[2020-06-28 12:55] LABS: Base Excess Cord Venous Blood -1.3 mEq/L (-7.7-1.9); CO2 Cord Arterial Blood 60 mmHg (39.1-73.5); Cord Venous Blood HCO3 25 mmol/L (18.4-26.8); Cord Venous Blood PCO2 47 mmHg (30.4-57.2); Cord Venous Blood PO2 30 mmHg (14.1-43.3); Cord Venous Blood pH 7.34 (7.20-7.44); HCO3 Cord Arterial Blood 27 mmol/L (19.7-28.5); Oxygen Sat Cord Arterial Blood < 60.0 % (<60); PO2 Cord Arterial Blood 19 mmHg (4.1-31.7); pH Cord Arterial Blood 7.27 (7.1-7.38)
[2020-06-28] MEDS ORDERED: SENNA 8.6 MG TAB PO PRN (13:15)
[2020-06-28] MEDS ORDERED: LACTATED RINGER'S 1,000 ML IV SCH (13:15)
[2020-06-28] MEDS ORDERED: MAGNESIUM HYDROXIDE SUSP 30 ML UDC PO PRN (13:15)
[2020-06-28] MEDS ORDERED: BENZOCAINE 20% AER SPR 82.5 GM CAN EXT PRN (13:15)
[2020-06-28] MEDS ORDERED: PROMETHAZINE HCL 25 MG in SODIUM CHLORIDE 0.9% 50 ML IV PRN (13:15)
[2020-06-28] MEDS ORDERED: DIPHTHERIA/TETANUS/PERTUSSIS 0.5 ML SYR/VIAL IM ONE (13:15)
[2020-06-28] MEDS ORDERED: HYDROCORTISONE ACETATE 25 MG SUPP PR PRN (13:15)
[2020-06-28] MEDS ORDERED: SUPERCREAM 0.870% 15 GM JAR EXT PRN (13:15)
--- NOTE | 2020-06-28 13:29 | Anesthesiology Progress Note ---
Date of Service June 28, 2020 Anesthesia Post Procedure Vital Signs Vital Signs: Temp Pulse Resp BP Pulse Ox 06/28/20 13:25 52 L 97 06/28/20 13:20 76 96 06/28/20 13:15 56 L 97 06/28/20 13:10 76 99 06/28/20 13:08 67 111/64 06/28/20 13:05 64 98 06/28/20 13:00 76 97 06/28/20 12:58 73 105/77 06/28/20 12:55 67 98 06/28/20 12:50 60 99 06/28/20 12:49 73 112/63 06/28/20 12:45 63 99 06/28/20 12:40 62 98 06/28/20 12:38 63 106/72 06/28/20 12:35 79 95 06/28/20 12:30 56 L 98 06/28/20 12:28 69 105/71 06/28/20 12:25 65 98 06/28/20 12:20 85 98 06/28/20 12:17 63 114/73 06/28/20 12:15 57 L 96 06/28/20 12:10 57 L 97 06/28/20 12:05 36.7 C 65 16 115/68 97 06/28/20 03:32 37.1 C 79 20 94/58 L 06/27/20 22:59 37.0 C 20 06/27/20 22:58 80 125/69 06/27/20 19:00 36.7 C 80 20 126/78 06/27/20 15:18 37.1 C 20 06/27/20 14:57 94 H 119/75 Transfer of Care Handoff Completed per policy Notes Mental Status: alert / awake / arousable and participated in evaluation Nausea / Vomiting: adequately controlled Pain: adequately controlled Airway Patency, RR, SpO2: stable & adequate BP & HR: stable & adequate Hydration State: stable & adequate Neuraxial Anesthesia: was administered and sensory block is resolving Anesthetic Complications: no major complications apparent and Pt Satisfied with anesthetic care
[2020-06-28] MEDS ORDERED: OXYTOCIN 30 UNITS in LACTATED RINGER'S 1,000 ML IV SCH (15:30)
[2020-06-28] MEDS: KETOROLAC 30 MG/ML VIAL IV PRN ×2 (17:18→23:30)
[2020-06-28] MEDS: SIMETHICONE 80 MG CHEW PO SCH ×2 (17:19→20:58)
[2020-06-28] MEDS: LACTATED RINGER'S 1,000 ML IV ONE ×2 (20:30→22:19)
[2020-06-28] MEDS ORDERED: LACTATED RINGER'S 250 ML IV ONE (20:31)
[2020-06-28] MEDS ORDERED: Nursing to Pharmacy Communication SCH (20:45)
[2020-06-28] MEDS: DOCUSATE SODIUM 100 MG CAP PO SCH (20:57)
[2020-06-29] MEDS: KETOROLAC 30 MG/ML VIAL IV PRN (06:11)
[2020-06-29] MEDS ORDERED: MEPERIDINE HCL 50 MG/ML CARP IV PRN (06:15)
[2020-06-29] MEDS ORDERED: KETOROLAC 30 MG/ML VIAL IV PRN (06:15)
[2020-06-29] MEDS ORDERED: diphenhydrAMINE Capsule 25 MG CAP PO PRN (06:15)
[2020-06-29] MEDS ORDERED: ONDANSETRON INJ 2 MG/ML 2 ML VIAL IV PRN (06:15)
[2020-06-29] MEDS ORDERED: diphenhydrAMINE 50 MG/ML VIAL IV PRN (06:15)
--- NOTE | 2020-06-29 07:13 | Obstetrical Progress Note ---
Date of Service June 29, 2020 Assessment & Plan (1) delivery delivered: Routine post- care today. TOV underway, already passed gas, needs ambulation today and continue pain mgmt (she has been declining narcotics due to nausea but feels toradol has been sufficient). Subjective Ambulation: limited ambulation Voiding: mcintosh catheter in place (already removed this morning but pt has not voided yet.) Passing Gas:: Yes (x1) Diet Tolerance:: regular diet Lochia:: Small Feeding Type:: breast feeding Physical Exam Constitutional WD/WN, vitals as above Eyes PERRL, conjunctivae normal, anicteric sclerae Neck normal visual inspection Respiratory normal respiratory effort and able to speak in complete sentences; no respiratory distress and no labored breathing Cardiovascular Rate/Rhythm: regular rate and regular rhythm Extremities: no edema Chest (Breasts) Chest: normal inspection of chest Gastrointestinal (Abdomen) Inspection/Auscultation: abdomen normal to inspection and + abdominal surgical incision (c/d/i with dermabond) Soft, postgravid Psychiatric A+Ox3, euthymic affect Genitourinary OB Exam Abdomen: + fundal height Fundus: + firm and + relation to umbilicus (fundus just below umbilicus); not tender Results & Data ([facility]) Vital Signs (Past 12 Hours) Vital Signs Temp Pulse Resp BP Pulse Ox 06/29/20 04:43 17 97 06/29/20 03:00 97.9 F 57 L 16 116/76 97 06/29/20 02:00 17 98 06/29/20 01:00 17 97 06/29/20 00:05 98.1 F 57 L 16 110/66 98 06/28/20 23:00 16 99 06/28/20 22:00 16 98 06/28/20 21:00 16 99 06/28/20 20:00 16 98
[2020-06-29 07:19] LABS: Basophils # (auto) 0.02 K/uL (0-0.2); Basophils % (auto) 0.2 %; Eosinophils # (auto) 0.05 K/uL (0-0.5); Eosinophils % (auto) 0.5 %; Hematocrit (blood only) 25.9 % (37-47); Hemoglobin 8.6 g/dL (12.0-16.0); Immature Granulocytes # (auto) 0.03 K/uL (0.00-0.02); Immature Granulocytes % (auto) 0.3 %; Lymphocytes # (auto) 1.38 K/uL (1.2-3.4); Lymphocytes % (auto) 14.1 %; Mean Corpuscular Hemoglobin 30.2 pg (25-34); Mean Corpuscular Hgb Conc 33.2 g/dL (32-36); Mean Corpuscular Volume 90.9 fL (80-100); Mean Platelet Volume 9.6 fL (7.4-10.4); Monocytes # (auto) 0.43 K/uL (0.11-0.59); Monocytes % (auto) 4.4 %; Neutrophils # (auto) 7.89 K/uL (1.4-6.5); Neutrophils % (auto) 80.5 %; Platelet Count 131 K/uL (130-400); RDW Coefficient of Variation 13.5 % (11.5-14.5); RDW Standard Deviation 44.5 fL (36.4-46.3); Red Blood Count 2.85 M/uL (4.2-5.4)
[2020-06-29] MEDS: SIMETHICONE 80 MG CHEW PO SCH ×4 (08:53→20:56)
[2020-06-29] MEDS: FERROUS SULFATE 325 MG TAB PO SCH (08:53)
[2020-06-29] MEDS: DOCUSATE SODIUM 100 MG CAP PO SCH ×2 (08:53→20:51)
[2020-06-29] MEDS: PRENATAL VITAMIN 1 TAB PO SCH (08:53)
[2020-06-29] MEDS: IBUPROFEN 600 MG TAB PO PRN ×3 (12:31→23:58)
[2020-06-29] MEDS: ACETAMINOPHEN 500 MG TAB PO PRN ×3 (12:31→23:58)
[2020-06-30 06:24] LABS: Hematocrit (blood only) 26.9 % (37-47); Hemoglobin 9.1 g/dL (12.0-16.0)
[2020-06-30] MEDS: ACETAMINOPHEN 500 MG TAB PO PRN ×2 (06:24→12:47)
[2020-06-30] MEDS: IBUPROFEN 600 MG TAB PO PRN ×4 (06:25→22:04)
--- NOTE | 2020-06-30 08:13 | Obstetrical Progress Note ---
Date of Service June 30, 2020 Assessment & Plan (1) delivery delivered: POD#2 doing well. Desires discharge tomorrow. Continue ambulation, PO regular diet and hydration. Subjective Ambulation: ambulating normally Voiding: no voiding problems Diet Tolerance:: regular diet Lochia:: Moderate Feeding Type:: breast feeding Review of Systems All systems reviewed & are unremarkable except as noted in HPI & below Physical Exam Incision CDI Constitutional WD/WN, vitals as above no acute distress Respiratory normal respiratory effort Cardiovascular Rate/Rhythm: regular rate and regular rhythm Gastrointestinal (Abdomen) Inspection/Auscultation: abdomen normal to inspection; abdomen not distended Percussion/Palpation: abdomen soft Genitourinary OB Exam Abdomen: + fundal height Fundus: + firm; not tender Results & Data ([facility]) Vital Signs (Past 12 Hours) Vital Signs Temp Pulse Resp BP 06/30/20 00:25 36.8 C 60 18 126/79
[2020-06-30] MEDS: SIMETHICONE 80 MG CHEW PO SCH ×3 (08:50→21:04)
[2020-06-30] MEDS: DOCUSATE SODIUM 100 MG CAP PO SCH ×2 (08:50→21:05)
[2020-06-30] MEDS: FERROUS SULFATE 325 MG TAB PO SCH (08:50)
[2020-06-30] MEDS: PRENATAL VITAMIN 1 TAB PO SCH (08:50)
--- NOTE | 2020-06-30 13:29 | Anesthesiology Progress Note ---
Date of Service June 30, 2020 Anesthesia Post Procedure Vital Signs Vital Signs: Temp Pulse Resp BP Pulse Ox 06/30/20 07:20 37 C 59 L 18 119/75 96 06/30/20 00:25 36.8 C 60 18 126/79 06/29/20 19:40 36.8 C 71 18 113/67 06/29/20 16:10 36.9 C 73 15 123/74 98 Pain Intensity Abdomen: Pain Intensity: 3 Transfer of Care Handoff Completed per policy Notes Mental Status: alert / awake / arousable and participated in evaluation Nausea / Vomiting: adequately controlled Pain: adequately controlled Airway Patency, RR, SpO2: stable & adequate BP & HR: stable & adequate Hydration State: stable & adequate Neuraxial Anesthesia: was administered and sensory block resolved Anesthetic Complications: no major complications apparent and Pt Satisfied with anesthetic care
[2020-06-30] MEDS: oxyCODONE/ACETAMINOPHEN 5mg/325mg TAB PO PRN (17:00)
[2020-07-01] MEDS: IBUPROFEN 600 MG TAB PO PRN ×2 (04:21→08:48)
[2020-07-01] MEDS: oxyCODONE/ACETAMINOPHEN 5mg/325mg TAB PO PRN ×2 (04:24→08:47)
--- NOTE | 2020-07-01 07:00 | Obstetrical Progress Note ---
Date of Service <Vishal Luis MD - Last Filed: 07/01/20 07:36> July 01, 2020 Assessment & Plan <Vishal Luis MD - Last Filed: 07/01/20 07:36> (1) delivery delivered: POD#2 doing well. Plan for discharge today. Continue ambulation, PO regular diet and hydration. -pain well-controlled with oxycodone/acetaminophen 2 tabs PO q4h prn -routine postcesarean care - OOB, ambulation, diet progression as tolerated -after discharge, will have 6 week follow-up with Dr. Purdy (2) Placenta previa with hemorrhage, antepartum: <Nusrat Bautista DO - Last Filed: 07/01/20 07:41> (1) delivery delivered: Subjective <Vishal Luis MD - Last Filed: 07/01/20 07:36> Chica Ramos is a 34 y/o female who is POD #3 following emergency c- section delivery at 35+1 weeks. She reports feeling well overall this morning. Mild abdominal cramping and 3/10 pain well managed on analgesics. Voiding well. Tolerating meals overnight without difficulty. Patient has been able to ambulate some. + passing gas and + bowel movement. Has persistent lochia with some improvement this morning. Currently . Review of Systems Denies fever or chills. Denies shortness of breath or cough. Denies chest pain. Denies breast pain. Denies dysuria. Denies leg pain or leg swelling. Denies headache or changes in vision. Physical Exam <Vishal Luis MD - Last Filed: 07/01/20 07:36> Incision CDI Constitutional WD/WN, vitals as above no acute distress Respiratory normal respiratory effort, lungs clear to auscultation Cardiovascular RRR, no murmur, no edema Gastrointestinal (Abdomen) normal BS, soft, mildly tender Musculoskeletal no calf tenderness, negative Laurita's sign Results & Data ([facility]) <Vishal Luis MD - Last Filed: 07/01/20 07:36> Vital Signs (Past 12 Hours) Vital Signs Temp Pulse Resp BP Pulse Ox 07/01/20 00:15 36.8 C 64 16 125/75 99 06/30/20 20:55 36.9 C 69 18 119/79 <Nusrat Bautista DO - Last Filed: 07/01/20 07:41> Co-Signing Physician Notes Resident Physician Supervision Note: I was present with Dr. Luis during the history and exam. I discussed the case with the resident and agree with the findings and plan as documented in the note. Any exceptions or clarifications are listed here: Doing well, DC home. Instructions discussed. Sent Rx 20 tabs percocet to [facility]. Documented By: Nusrat Bautista DO Resident Activity Tracking <Vishal Luis MD - Last Filed: 07/01/20 07:36> Resident Involvement: Resident Care Provided Care Provided: OB Delivery
[2020-07-01] MEDS: DOCUSATE SODIUM 100 MG CAP PO SCH (08:47)
[2020-07-01] MEDS: PRENATAL VITAMIN 1 TAB PO SCH (08:47)
[2020-07-01] MEDS: SIMETHICONE 80 MG CHEW PO SCH (08:47)
[2020-07-01] MEDS: FERROUS SULFATE 325 MG TAB PO SCH (08:47)
== END 2020-07-01 11:09 | disposition home or self-care (01) | DRG 788 ==
LOC: OPB 05:10 → 4S1 05:10 → 4S2 06-28 15:18